=== PATIENT | female | born 1980 | race Caucasian/White ===

== ENCOUNTER 2017-07-07 19:32 | Emergency (ER) | payer OTHER, BC ==
[~2017-07-07] VITALS: Ht 170.2 cm; Wt 103.0 kg
[~2017-07-07 19:32] MED LIST: BONTRIL PDM35 MG PO; CYCLOBENZAPRINE10 MG PO; IBUPROFEN800 MG PO; MULTIVITAMINS1 EAC8 PO; NORCO 5-325 TA1 EACH PO; PERCOCET 5-3251 EACH PO; PYRIDIUM200 MG PO
--- OUTSIDE RECORDS SUMMARY | 2017-07-07 20:15 | XMS | Clinical Summary ---
Demographics + + + | Address | [address] | | | [place] [address] | + + + | Home Phone | | + + + | Preferred Language | Unknown | + + + | Marital Status | Unknown | + + + | Anabaptist Affiliation | Unknown | + + + | Race | Unknown | + + + | Ethnic Group | Unknown | + + + Author + + + | Author | [facility] | | | and [place] | + + + | Organization | [facility] | | | and [place] | + + + | Address | Unknown | + + + | Phone | Unavailable | + + + Care Team Providers + +------+ + | Care Digital Account Executive Name | Role | Phone | + +------+ + PP | Unavailable | + +------+ + Allergies Not on File Current Medications Not on file Active Problems Not on file Social History + +-------+ +--------+------+ | Tobacco Use | Types | Packs/Day | Years | Date | | | | | Used | | + +-------+ +--------+------+ | Never Assessed | | | | | + +-------+ +--------+------+ + + + | Sex Assigned at | Date Recorded | | | | + + + | Not on file | | + + + Plan of Treatment + + + + + | Health Maintenance | Due Date | Last Done | Comments | + + + + + | Vaccine: | 12/21/200 | | | | Dtap/Tdap/Td (1 - | 1 | | | | Tdap) | | | | + + + + + | CERVICAL CANCER | | | | | SCREENING (PAP EVERY | 3 | | | | 3 YEARS 21-64 ) | | | | + + + + + | Vaccine: Influenza | | | | | (Season Ended) | 8 | | | + + + + + Results Not on filefrom Last 3 Months"
--- OUTSIDE RECORDS SUMMARY | 2017-07-07 20:15 | XMS | Clinical Summary ---
Demographics + + + | Address | [address] | | | [place] [address] | + + + | Home Phone | | + + + | Preferred Language | Unknown | + + + | Marital Status | Unknown | + + + | Mandaen Affiliation | Unknown | + + + | Race | Unknown | + + + | Ethnic Group | Unknown | + + + Author + + + | Author | [facility] | | | and [place] | + + + | Organization | [facility] | | | and [place] | + + + | Address | Unknown | + + + | Phone | Unavailable | + + + Care Team Providers + +------+ + | Care Greenskeeper Laborer Name | Role | Phone | + [...]
[2017-07-07] MEDS ORDERED: IBU800 MG PO (20:23)
[2017-07-07] MEDS ORDERED: NORCO 5-325 TA1 EACH PO (22:45)
== END 2017-07-07 23:13 | disposition home or self-care (01) ==
LOC: ED 19:32
DX: R10.9 Unspecified abdominal pain (principal); N20.0 Calculus of kidney; F17.200 Nicotine dependence, unspecified, uncomplicated; Z88.1 Allergy status to other antibiotic agents
CPT/HCPCS: 74176; 80053; 81001; 85025; 96374; 96375; 96376; 99284; J1885; J2270; J2405

== ENCOUNTER 2017-07-13 09:43 | Emergency (ER) | payer OTHER, BC ==
[~2017-07-13] VITALS: Ht 170.2 cm; Wt 103.0 kg
[~2017-07-13 09:43] MED LIST changes: +IBU800 MG PO
[2017-07-13] MEDS ORDERED: MEDROL4 MG PO (11:49)
[2017-07-13] MEDS ORDERED: CYCLOBENZAPRINE5 MG PO (11:49)
[2017-07-13] MEDS ORDERED: NAPROSYN500 MG PO (11:49)
[2017-07-13] MEDS ORDERED: ZOFRAN ODT4 MG PO (11:49)
== END 2017-07-13 11:59 | disposition home or self-care (01) ==
LOC: ED 09:43
DX: R10.9 Unspecified abdominal pain (principal); F17.200 Nicotine dependence, unspecified, uncomplicated; Z88.0 Allergy status to penicillin; Z88.5 Allergy status to narcotic agent; Z79.899 Other long term (current) drug therapy
CPT/HCPCS: 76770; 80053; 81001; 85025; 96361; 96374; 96375; 99283; J1885; J2405; J2550; J7030

== ENCOUNTER 2017-09-28 21:55 | Emergency (ER) | payer BC ==
[~2017-09-28] VITALS: Ht 167.6 cm; Wt 104.3 kg
[~2017-09-28 21:55] MED LIST changes: +CYCLOBENZAPRINE5 MG PO; +MEDROL4 MG PO; +NAPROSYN500 MG PO; +ZOFRAN ODT4 MG PO
[2017-09-28] MEDS ORDERED: TRINATE TABLET1 EACH PO (22:06)
== END 2017-09-29 01:03 | disposition home or self-care (01) ==
LOC: ED 21:55
DX: G43.909 Migraine, unspecified, not intractable, without status migrainosus (principal); F17.200 Nicotine dependence, unspecified, uncomplicated; Z88.0 Allergy status to penicillin; Z88.5 Allergy status to narcotic agent
CPT/HCPCS: 70450; 96361; 96372; 96374; 96375; 99284; J1200; J1885; J2765; J3030; J7030

== ENCOUNTER 2021-12-04 11:39 | Emergency (ER) | payer OTHER ==
[~2021-12-04] VITALS: Ht 167.6 cm; Wt 119.0 kg
[~2021-12-04 11:39] MED LIST changes: +MOTRIN IB200 MG PO; +TRINATE TABLET1 EACH PO; +TYLENOL WITH C1 EACH PO; +ULTRAM50 MG PO
[2021-12-04] MEDS ORDERED: ONDANSETRON ODT4 MG PO (12:12)
[2021-12-04] MEDS ORDERED: PROTONIX40 MG PO (12:12)
[2021-12-04] MEDS ORDERED: HYDROCODON-ACE1 EA10 PO (12:12)
== END 2021-12-04 13:14 | disposition home or self-care (01) ==
LOC: ED 11:39
DX: K29.00 Acute gastritis without bleeding (principal); Z87.442 Personal history of urinary calculi; F17.200 Nicotine dependence, unspecified, uncomplicated; Z88.0 Allergy status to penicillin; Z88.5 Allergy status to narcotic agent; Z88.8 Allergy status to other drugs, medicaments and biological substances; Z79.899 Other long term (current) drug therapy
CPT/HCPCS: 87493; 99283

== ENCOUNTER 2021-12-24 11:41 | Day surgery (SDC) | payer OTHER ==
[~2021-12-24] VITALS: Ht 167.6 cm; Wt 118.2 kg
[~2021-12-24 11:41] MED LIST changes: +HYDROCODON-ACE1 EA10 PO; +ONDANSETRON ODT4 MG PO; +PROTONIX40 MG PO
[2021-12-24] MEDS ORDERED: SUMATRIPTAN SUC50 MG PO (12:03)
[2021-12-24] MEDS ORDERED: VITAMIN D21250 MCG PO (12:03)
--- NOTE | 2021-12-24 13:28 | NUR ---
12/24/21 1328 Elizabeth Mc 1322 PATIENT ARRIVES TO PACU AWAKE BUT DROWSY. DENIES PAIN OR NAUSEA. RESP EVEN AND UNLABORED, NC OFF.
--- NOTE | 2021-12-24 19:03 | OR ---
[facility] [address] [place], [place] [address] Signed DATE OF OPERATION: 12/24/2021 SURGEON: Levi Beavers MD PREOPERATIVE DIAGNOSES: 1. Poorly localized abdominal pain. 2. Diarrhea (persistent). 3. History of cholecystectomy. POSTOPERATIVE DIAGNOSES: 1. Hiatal hernia without associated esophagitis. 2. Proximal small esophageal nodule. 3. Small hiatal hernia. 4. Low-grade mild inflammatory change of the sigmoid and left colon. PROCEDURES: 1. Esophagogastroduodenoscopy with biopsy. 2. Excision of proximal esophageal nodular mass. 3. Total colonoscopy to cecum with biopsies of ileum, cecum, and rectum. 4. Excision of small polyp of left colon. ANESTHESIA: Intravenous sedation fentanyl 200 mcg Versed 11 mg, total. INDICATION: 41-year-old white woman is a patient of Yenikaleigh La, She has had diarrhea for the past two months. She does have history of cholecystectomy in the past (2010) and colonoscopy in 2018. She has upper abdominal pain symptoms, but no sign of hematemesis or blood per rectum. She has had diarrhea as noted with associated abdominal pain, but no rectal bleeding. She is admitted at this time to undergo upper endoscopy and colonoscopy to better characterize the problem. It is notable that she did present to the emergency room and was recommended to have treatment empirically for C difficile with Flagyl, which she declined. FINDINGS: Upper endoscopy showed small nodule in the proximal esophagus which was easily excised completely. It had epithelial changes in appearance. The esophagus itself was otherwise reasonably normal. There was a hiatal hernia. She had mild irritation of the duodenum, no sign of ulceration. CLOtest was negative. Electronically Signed By: LEVI BEAVERS MD 12/24/21 190 PATIENT NAME: ROMAN SLAUGHTER OPERATIVE REPORT DATE OF : 84 REPORT #: [id number] PHYSICIAN: LEVI BEAVERS MD PCP: YENI LA PA-C REPORT IS CONFIDENTIAL AND NOT TO BE RELEASED WITHOUT AUTHORIZATION [facility] [address] [place], [place] [address] Signed On colonoscopy, the prep was good. Complete colonoscopy was undertaken of cecum. Intubation of the ileum was accomplished. The ileum appeared normal. Biopsies were obtained there and of the cecum and rectum. She had a small polyp of the sigmoid colon which was excised with cold morcellation technique. There were no other findings of concern. PROCEDURE IN DETAIL: The patient was brought to the endoscopy suite given topical lidocaine hypopharyngeal anesthesia, placed in lateral decubitus position. She was given intravenous sedation to the point of slurred speech and nystagmus. A bite block was placed. An Olympus video upper endoscope was passed in the hypopharynx. Vocal cords were found to be normal. Scope was advanced to the esophagus and passed through the GE junction to the stomach. Stomach was inflated with air. Rugal folds appeared normal. Antrum was normal. Pylorus was normal. Scope was passed through into the duodenum. There was mild inflammatory change of the bulbar portion, but no ulceration. Biopsies were taken of the bulb and the second portion. The ampulla was identified as normal. Scope was withdrawn. Biopsies taken of the antrum for both OMAYRA and pathologic testing. Retroflexed view undertaken showed a small hiatal hernia. The scope was withdrawn to the distal esophagus. Biopsies were obtained though the mucosa looked reasonably normal. There was no Huerta's epithelium stricture or neoplasm. Further withdrawal of scope showed a somewhat epithelioid nodule at 20 cm from the incisors. This was excised with cold morcellation technique. The scope was withdrawn. Plans were then made for colonoscopy. Additional sedation was given. Anorectal examination showed external hemorrhoidal change. An Olympus video colonoscope was passed in the rectum and manipulated throughout the colon ultimately to the cecum. The ileocecal valve appeared normal. Appendiceal orifice was normal. Scope was advanced into the ileum a short distance and biopsy was obtained of normal-appearing mucosa. The scope was withdrawn. Biopsies taken of the cecum. Further withdrawal showed no other abnormality until the sigmoid where a small sessile polyp was noted, this was excised with cold morcellation technique. Further withdrawal showed mild inflammatory change of the rectum, but not much. Biopsies were obtained. Retroflexed view was essentially normal. Scope was removed. The patient was taken to the recovery room in good condition. CONCLUDING DIAGNOSES: 1. Hiatal hernia with uncertain relationship for reflux type symptoms. 2. Small proximal esophageal nodule excised, likely benign. 3. Reasonably normal-appearing colon and ilium. PLAN: Empiric treatment of Flagyl 250 p.o. t.i.d. x42 pills will be undertaken. If she still has symptoms of diarrhea, consideration will be made for Questran administration given Electronically Signed By: LEVI BEAVERS MD 12/24/21 501 PATIENT NAME: ROMAN SLAUGHTER OPERATIVE REPORT DATE OF : 84 REPORT #: [id number] PHYSICIAN: LEVI BEAVERS MD PCP: YENI LA PA-C REPORT IS CONFIDENTIAL AND NOT TO BE RELEASED WITHOUT AUTHORIZATION [address] [address] Signed her distant history of cholecystectomy. She will return to see me in approximately 4 weeks. MD ROSALINA Pandya/MODL /[id number] cc: Yeni La PA-C Copies: YENI LA PA-C ~ Electronically Signed By: LEVI BEAVERS MD 12/24/211902 PATIENT NAME: ROMAN SLAUGHTER OPERATIVE REPORT DATE OF : 84 REPORT #: [id number] PHYSICIAN: LEVI BEAVERS MD PCP: YENI LA PA-C REPORT IS CONFIDENTIAL AND NOT TO BE RELEASED WITHOUT AUTHORIZATION
--- NOTE | 2021-12-30 14:51 | PATH ---
[facility] [address] [facility] [place], [place] [address] Signed SPECIMEN(S): A DUODENAL BIOPSY SPECIMEN(S): B ANTRUM/PYLORUS BIOPSY SPECIMEN(S): C LOW ESOPHAGEAL BIOPSY SPECIMEN(S): D MID ESOPHAGEAL BIOPSY SPECIMEN(S): E ESOPHAGEAL BIOPSY AT 20 CM SPECIMEN(S): F TERMINAL ILEUM BIOPSY SPECIMEN(S): G CECAL BIOPSY SPECIMEN(S): H TRANSVERSE COLON BIOPSY SPECIMEN(S): I SIGMOID COLON BIOPSY SPECIMEN(S): J SIGMOID POLYP SPECIMEN(S): K RECTAL BIOPSY SPECIMEN SOURCE: A. DUODENAL BIOPSY B. ANTRUM/PYLORUS BIOPSY C. LOW ESOPHAGEAL BIOPSY D. MID ESOPHAGEAL BIOPSY E. ESOPHAGEAL BIOPSY AT 20 CM F. TERMINAL ILEUM BIOPSY G. CECAL BIOPSY H. TRANSVERSE COLON BIOPSY I. SIGMOID COLON BIOPSY J. SIGMOID POLYP K. RECTAL BIOPSY CLINICAL HISTORY: History of diarrhea (chronic), abdominal pain. Post: Hiatal hernia, small esophageal nodule, mild inflammation of colon, polyp x1. FINAL PATHOLOGIC DIAGNOSIS: A. Duodenum, biopsy: - No significant histopathology. B. Antrum/pylorus, biopsy: - No significant histopathologic alterations. C. Low esophagus, biopsy: - Reflux esophagitis. - No evidence of Huerta's esophagus. D. Mid esophagus, biopsy: - Chronic esophagitis. E. Esophagus, 20 cm, biopsy: - Squamous papilloma. PATIENT NAME: KASANDRAROMANANN MARIE SMITH PATHOLOGY DATE OF : 84 REPORT #: [id number] PHYSICIAN: ANA MARIA WILLSON PCP: SANTY LOMBARDI PA-C REPORT IS CONFIDENTIAL AND NOT TO BE RELEASED WITHOUT AUTHORIZATION [facility] [address] [place], [place] [address] Signed F. Terminal ileum, biopsy: - Focal acute ileitis. G. Colon, cecum, biopsy: - Mucosal eosinophilia. H. Colon, transverse, biopsy: - No significant histopathology. I. Colon, sigmoid, biopsy: - No significant histopathology. J. Colon, sigmoid, polypectomy: - Hyperplastic polyp. - There is no evidence of dysplasia or malignancy. K. Rectum, biopsy: - No significant histopathologic alterations. COMMENT: Regarding specimen A, the sections from the duodenal biopsy show portions of duodenal mucosa with long finger-like villi. There is no villous atrophy, crypt hyperplasia or intraepithelial lymphocytosis, making a diagnosis of celiac disease unlikely. There is no evidence of peptic duodenitis, microorganisms, abnormal infiltrates or neoplasia. Regarding specimen B, the sections through the gastric biopsies show fragments of histologically unremarkable antral mucosa. There is no evidence of acute or chronic inflammation. There is no evidence of H. pylori, intestinal metaplasia, abnormal infiltrates or neoplasia. Regarding specimen C, the sections through the biopsy show strips of reactive appearing squamous mucosa with basal cell hyperplasia. The epithelium is infiltrated by lymphocytes and small numbers of eosinophils. No glandular mucosa or intestinal metaplasia is identified. Regarding specimen D, the biopsy contains reactive appearing squamous mucosa with mild ballooning degeneration. Prominent vascular lakes are present in the papillae. No gastric glandular mucosa is identified. The changes are nonspecific and can be seen in a variety of settings including infections, gastroesophageal reflux disease or other forms of esophagitis. Regarding specimen E, features of HPV-induced nuclear changes are not present in these sections. Regarding specimen F, the sections from the terminal ileum show an architecturally normal mucosa. Focally, there is an increase in the number of mononuclear cells in the lamina propria. There is a PATIENT NAME: ROMAN SLAUGHTER PATHOLOGY DATE OF : 84 REPORT #: [id number] PHYSICIAN: ANA MARIA PATHOLOGY PCP: SANTY LOMBARDI PA-C REPORT IS CONFIDENTIAL AND NOT TO BE RELEASED WITHOUT AUTHORIZATION [facility] [address] [place], [place] [address] Signed focal neutrophilic infiltrate involving the villi. Changes such as this can be seen in patients with IBD, infections, ischemia or on certain medications. No granulomas or abnormal organisms are seen. Regarding specimen G, sections through the specimen show a focal increase in the number of eosinophils in the lamina propria. Where they are most numerous, they number up to 41/HPF. Increased eosinophils are seen in response to some infections, in patients with IBD and in patients with allergies or reactions to drugs, foods, supplements and environmental allergens. This change could be the result of stasis that commonly occurs in motility disorders. A certain percentage of patients with this finding will eventually be shown to develop Crohn's disease. Regarding specimens H and I, the sections from the specimens contain architecturally normal colonic mucosa without crypt distortion. There is no acute or chronic inflammation. There is no evidence of microscopic colitis. There are no abnormal organisms or infiltrates. There are no polyps or neoplasms. Regarding specimen K, the sections from the specimen are architecturally normal without crypt distortion. There is no acute or chronic inflammation. There is no evidence of microscopic colitis. There are no abnormal organisms or infiltrates. There is no evidence of polyps or neoplasia. TWK:em:C2NR MICROSCOPIC EXAMINATION: Histologic sections of all submitted blocks are examined by light microscopy. These findings, together with the gross examination, support the pathologic diagnosis. GROSS DESCRIPTION: Eleven specimens are received in eleven containers, labeled "HV ." A. The specimen, labeled "HV #1," is received in formalin and consists of one march soft tissue fragment that measures 0.3 cm in greatest dimension. The specimen is entirely submitted in cassette (A1). B. The specimen, labeled "HV #2," is received in formalin and consists of two march soft tissue fragment(s) that measure 0.2 cm in greatest dimension. The specimen is entirely submitted in cassette (B1). C. The specimen, labeled "HV #3," is received in formalin and consists of two march soft tissue fragment(s) that measure 0.3 cm in greatest dimension. The PATIENT NAME: ROMAN SLAUGHTER PATHOLOGY DATE OF : 84 REPORT #: [id number] PHYSICIAN: ANA MARIA PATHOLOGY PCP: SANTY LOMBARDI PA-C REPORT IS CONFIDENTIAL AND NOT TO BE RELEASED WITHOUT AUTHORIZATION [address] [address] Signed specimen is entirely submitted in cassette (C1). D. The specimen, labeled "HV #4," is received in formalin and consists of one march soft tissue fragment that measures 0.3 cm in greatest dimension. The specimen is entirely submitted in cassette (D1). E. The specimen, labeled "HV #5," is received in formalin and consists of one march soft tissue fragment that measures 0.2 cm in greatest dimension. The specimen is entirely submitted in cassette (E1). F. The specimen, labeled "HV #6," is received in formalin and consists of two march soft tissue fragment(s) that measure 0.3 cm in greatest dimension. The specimen is entirely submitted in cassette (F1). G. The specimen, labeled "HV #7," is received in formalin and consists of one march soft tissue fragment that measures 0.3 cm in greatest dimension. The specimen is entirely submitted in cassette (G1). H. The specimen, labeled "HV #8," is received in formalin and consists of two march soft tissue fragment(s) that measure 0.2 cm in greatest dimension. The specimen is entirely submitted in cassette (H1). I. The specimen, labeled "HV #9," is received in formalin and consists of three march soft tissue fragment(s) that measure 0.2 cm in greatest dimension. The specimen is entirely submitted in cassette (I1). J. The specimen, labeled "HV #10," is received in formalin and consists of two march soft tissue fragment(s) that measure 0.2 cm in greatest dimension. The specimen is entirely submitted in cassette (J1). K. The specimen, labeled "HV #11," is received in formalin and consists of two march soft tissue fragment(s) that measure 0.2 cm in greatest dimension. The specimen is entirely submitted in cassette (K1). KV (under the direct supervision of a pathologist) The Gross Description was prepared using a voice recognition system. The report was reviewed for accuracy; however, sound-alike word errors, addition and/or deletions may occur. If there is any question about this report, please contact Client Services. PERFORMING LABORATORY: The technical component was performed by [email or web address], Rema Pena, PATIENT NAME: ROMAN SLAUGHTER PATHOLOGY DATE OF : 84 REPORT #: [id number] PHYSICIAN: ANA MARIA PATHOLOGY PCP: SANTY LOMBARDI PA-C REPORT IS CONFIDENTIAL AND NOT TO BE RELEASED WITHOUT AUTHORIZATION [address], [place] [address] [place] [address] (CLIA# [id number]). The professional interpretation was performed by [facility], [facility], [facility] [address] [address] (CLIA#: [id number]). Diagnostician: Laron Briseno MD Pathologist Electronically Signed 12/30/2021 Copies: ~ PATIENT NAME: ROMAN SLAUGHTER PATHOLOGY DATE OF : 84 REPORT #: [id number] PHYSICIAN: ANA MARIA WILLSON PCP: SANTY LOMBARDI PA-C REPORT IS CONFIDENTIAL AND NOT TO BE RELEASED WITHOUT AUTHORIZATION
== END 2021-12-24 14:05 | disposition home or self-care (01) ==
LOC: OPS 11:41 → DS 11:44 → OPS 11:45 → DS 13:00 → OPS 13:00
PROVIDERS: ATTEND Surgery
PROC: 0DBH8ZX Excision of Cecum, Via Natural or Artificial Opening Endoscopic, Diagnostic (ICD-10-PCS; 2021-12-24)
PROC: 0DBL8ZX Excision of Transverse Colon, Via Natural or Artificial Opening Endoscopic, Diagnostic (ICD-10-PCS; 2021-12-24)
PROC: 0DBN8ZX Excision of Sigmoid Colon, Via Natural or Artificial Opening Endoscopic, Diagnostic (ICD-10-PCS; 2021-12-24)
PROC: 0DBP8ZX Excision of Rectum, Via Natural or Artificial Opening Endoscopic, Diagnostic (ICD-10-PCS; 2021-12-24)
PROC: 0DBB8ZX Excision of Ileum, Via Natural or Artificial Opening Endoscopic, Diagnostic (ICD-10-PCS; 2021-12-24)
PROC: 0DB98ZX Excision of Duodenum, Via Natural or Artificial Opening Endoscopic, Diagnostic (ICD-10-PCS; principal; 2021-12-24 11:45)
PROC: 0DB68ZX Excision of Stomach, Via Natural or Artificial Opening Endoscopic, Diagnostic (ICD-10-PCS; 2021-12-24 11:45)
DX: K52.9 Noninfective gastroenteritis and colitis, unspecified (principal); Z90.49 Acquired absence of other specified parts of digestive tract; Z90.710 Acquired absence of both cervix and uterus; K44.9 Diaphragmatic hernia without obstruction or gangrene; K63.89 Other specified diseases of intestine; K21.00 Gastro-esophageal reflux disease with esophagitis, without bleeding; K63.5 Polyp of colon; D13.0 Benign neoplasm of esophagus
CPT/HCPCS: 99153; G0500; J2250; J3010; J7121

== ENCOUNTER 2023-04-07 06:58 | Day surgery (SDC) | payer BC, OTHER ==
[2023-04-02 15:19] VITALS: BP 110/83
[~2023-04-07] VITALS: Ht 167.6 cm; Wt 113.6 kg
[2023-04-07] VITALS (9 sets, daily range): BP systolic 98–126; BP diastolic 59–85
--- NOTE | ~2023-04-07 | OR ---
[facility] [address], [place] [address] Draft DATE OF OPERATION: 04/07/2023 SURGEON: Cheryl Wilson DO PREOPERATIVE DIAGNOSES: 1. Chronic pelvic pain. 2. History of endometriosis. 3. Hydrosalpinx. POSTOPERATIVE DIAGNOSES: 1. Chronic pelvic pain. 2. History of endometriosis. 3. Hydrosalpinx. 4. Extensive pelvic adhesions. 5. Endometriosis of the pelvic peritoneum excised in total. PROCEDURES PERFORMED: 1. Left oophorectomy. 2. Right salpingectomy. 3. Extensive lysis of adhesions. 4. Excision of endometriosis. 5. Cystoscopy. MORTAR MIXER: Carmella Lyles MD ANESTHESIA: General. ESTIMATED BLOOD LOSS: 50 mL. COMPLICATIONS: None. SPECIMENS: 1. Left ovary. 2. Right hydrosalpinx. 3. Endometriosis implants. PATIENT NAME: ROMAN SLAUGHTER OPERATIVE REPORT DATE OF : 84 REPORT #: [id number] PHYSICIAN: CHERYL WILSON) PCP: SANTY LOMBARDI PA-C REPORT IS CONFIDENTIAL AND NOT TO BE RELEASED WITHOUT AUTHORIZATION [facility] [address] [place] [id number] Draft DRAINS: None. IMPLANTS: None. INDICATIONS: Ms. Slaughter is a very pleasant 43-year-old G1 female with a long history of endometriosis and chronic pelvic pain. She underwent hysterectomy 13 years ago for endometriosis and had excision of residual endometriosis in 2019. Over the past six months, the patient reported increased symptoms. An ultrasound was performed that demonstrated normal ovaries bilaterally, but a large fallopian tube consistent with hydrosalpinx. The patient was consented for diagnostic laparoscopy with bilateral salpingectomy and excision of endometriosis and any other procedures as necessary. Risks, benefits, and alternatives were discussed in detail with the patient. The patient understands and wishes to proceed with the procedure. TECHNIQUE: The patient was taken to the OR. A time-out was performed to confirm correct patient and correct procedure. General anesthesia was adequately established. The patient was prepped and draped in dorsal lithotomy position with the feet in Yellofin stirrups. ICPs were on and running and no preoperative antibiotics or heparin was indicated. A Blake catheter was inserted and an EEA bowel sizer appropriately-sized was placed in vagina to assist with manipulation of the vaginal cuff needed. Surgeon's gloves were changed and attention was turned to the abdomen. Below the umbilicus, the skin was infiltrated with 0.25% Marcaine with epinephrine. A curvilinear incision was made with an 11 blade scalpel. The fascia was grasped with hemostats, elevated, and the fascia was entered sharply with Metzenbaum scissors. Stay sutures of 0 Vicryl placed were in the superior and inferior edge of the fascial incision. The peritoneum was entered bluntly and a Aden operative port was placed without difficulty. Establishing pneumoperitoneum with low opening pressures appreciated. Survey of the abdomen and pelvis was performed demonstrating significant adhesive disease. A 5 mm assist port was placed in the left lower quadrant under direct visualization and an 8 mm expanding port was placed in the right lower quadrant under direct visualization without complication. The right adnexum shows normal right ovary with right hydrosalpinx that was scarred to the vaginal cuff. The uterus and left fallopian tube are surgically absent. The left ovary is adherent and deeply scarred to the pelvic sidewall and to the sigmoid colon. The pelvic peritoneum next to these adhesions appears to be consistent with endometriosis. Decision was made to proceed with right salpingectomy of hydrosalpinx and left oophorectomy and lysis of adhesions. The right hydrosalpinx was grasped, elevated, and dissected carefully using the LigaSure device from the vaginal cuff. This dissection was uncomplicated and the hydrosalpinx was delivered and sent to Pathology PATIENT NAME: ROMAN SLAUGHTER OPERATIVE REPORT DATE OF : [birth year] REPORT #: [id number] PHYSICIAN: CHERYL WILSON (TIANA) PCP: SANTY LOMBARDI PA-C REPORT IS CONFIDENTIAL AND NOT TO BE RELEASED WITHOUT AUTHORIZATION [facility] [address], [place] [address] Draft for further evaluation. The appendix was noted to be surgically absent and no gross endometrial implants were noted in the right lower quadrant. Attention was then turned to the left. The ovary was densely adherent. The left infundibulopelvic ligament was identified and decision was made to open the retroperitoneum. The peritoneum lateral and superior to the IP was grasped and entered sharply and the peritoneum dissected bluntly. The infundibulopelvic ligament was identified. The ureter was identified medial to this. The IP was then isolated, fulgurated and divided with excellent hemostasis. Careful dissection of the ovary away from the remainder of the pelvic sidewall and the rectum was performed with careful extraction of the ovary. The bowel was carefully examined and no concern for bowel injury was identified. An endometrial implant of the pelvic peritoneum on the left just lateral to the round ligament was then identified. This was grasped, elevated, and the peritoneum was entered sharply. The peritoneum was then undermined bluntly, freeing the peritoneal implant from the underlying retroperitoneal tissue. This was then excised in total and sent to Pathology for further evaluation. The pelvis was irrigated and found to be hemostatic. Tisseel was applied to the dissection planes to assure hemostasis possibly avoid adhesions in the future. The pneumoperitoneum was reduced. Trocars were removed and infraumbilical fascia was reapproximated using 0 Vicryl in a running nonlocked manner. Stay sutures were reapproximated using to reinforce the infraumbilical fascial incision. The skin was reapproximated using 4-0 Monocryl in a running subcuticular stitch with excellent hemostasis and then the cosmesis appreciated. Attention was then turned to cystoscopy. The EEA Sizer was removed. The vagina and the Blake catheter was removed from the bladder. A 7-degree cystoscope was then placed in the urethral meatus and advanced under direct visualization to the bladder. Normal bladder dome and bilateral ureteral jets were performed. The bladder was drained. Blake catheter was reinserted. The patient was taken to PACU in good and stable condition. Sponge, needle, and instrument counts were correct x2 at the end the procedure. Dr. Lyles was present and participated in all portions of the procedure. DO RAHEL Maravilla/OZZY /[id number] PATIENT NAME: ROMAN SLAUGHTER OPERATIVE REPORT DATE OF : [birth year] REPORT #: [id number] PHYSICIAN: CHERYL WILSON) PCP: SANTY LOMBARDI PA-C REPORT IS CONFIDENTIAL AND NOT TO BE RELEASED WITHOUT AUTHORIZATION [address] [place], [place] [address] Draft Copies: ~ PATIENT NAME: ROMAN SLAUGHTER OPERATIVE REPORT DATE OF : 84 REPORT #: [id number] PHYSICIAN: CHERYL WILSON) PCP: SANTY LOMBARDI PA-C REPORT IS CONFIDENTIAL AND NOT TO BE RELEASED WITHOUT AUTHORIZATION
[~2023-04-07 06:58] MED LIST changes: +FLONASE ALLERG9.9 ML; +SUMATRIPTAN SUC50 MG PO; +VITAMIN D21250 MCG PO; +WELLBUTRIN XL150 MG PO; +XYZAL5 MG PO
--- NOTE | 2023-04-07 11:58 | NUR ---
0955 PT VITALS AND PAIN ASSESSED. PT REPORTS TOLERABLE LEVEL OF PAIN. PT INFORMED THAT PROCEDURE HAS BEEN BUMPED. PT UNDERSTANDING OF SITUATION. 1046 PT VITALS TAKEN. PT REPORTS HIGHER LEVEL OF PAIN AND REQUESTS PAIN MEDICINE. THIS RN SPOKE WT VICKY ANESTHIA IN REGARDS TO THIS. ANESTHIA BROUGHT IV TYLEOL AND ADMNISTERED TO PT. 1142 PT VITALS TAKEN. PAIN REASSSESSED AND IS AT A TOLERABLE LEVEL. PT INFORMED OF WAIT FOR PROCEDURE. PT STILL UNDERSTANDING OF SITUATION.
--- NOTE | 2023-04-07 12:13 | NUR ---
LE 1210 PATIENT UP TO THE RESTROOM. TOLERATED AMBULATION WELL. NEW BAG OF LR STARTED. PATIENT BACK TO BED. PATIENT UPDATED ON WAIT. PATIENT AGREEABLE AND UNDERSTANDING AT THIS TIME. CALL LIGHT WITHIN REACH NO FUTHER NEEDS. NO QUESTIONS AT THIS TIME. AT BEDSIDE.
--- NOTE | 2023-04-07 15:51 | NUR ---
04/07/23 1557 Lexi Kirby 1525- PT ARRIVES TO PACU VIA STRETCHER FROM OR. PT IS NOT REACTIVE TO TACTILE STIMULI AT THIS TIME. PT BED AT [address] AND DRAINING TO GRAVITY. MESH UNDERWEAR AND MULU PAD IN PLACE AT THIS TIME, NO DRAINAGE. PT RESPIRATIONS ARE SHALLOW AND UNLABORED, NO SIGNS OF DISTRESS. PT ON 6L OF O2 VIA MASK W/OPA IN PLACE. REPORT RECEIVED FROM ELIAS SOUSA.
--- NOTE | 2023-04-07 16:49 | NUR ---
164 PT CAME TO DAY SURGERY VIA BRIDGETT FROM PACU. TOOK REPORT FROM МАРИЯ Mcneill RN. PT HAS 5/10 PAIN. PT REPORTS NO NAUSEA. PT BREATHING EQUAL AND UNLABORED. PT BROUGHT OVER ON 1 L OF OXYGEN. PT TOLERATING PO WATER. 1647 PT TAKEN OFF OXYGEN. PT HOLDING AT 98% OXYGEN SATURATION. PULSE OX LEFT ON PT TO MONITOR.
--- NOTE | 2023-04-07 17:09 | NUR ---
1700 PT REPORTS 5/10 NOT TOLERABLE PAIN. PT ABLE TO TOLERATE CRACKERS AND PUDDING AND WATER. 1708 PAIN MEDICINE GIVEN ORALLY. PT TOLERATING WELL. 1710 PT ON ROOM AIR AND STAYING AT 99% OXYGEN SATURATION. PT BREATHING EQUAL AND UNLABORED. PT HAS AT BEDSIDE, PT HAS CALL LIGHT WITHIN REACH, PT HAS PERSONAL ITEMS WITHIN REACH. BED LOW AND LOCKED.
--- NOTE | 2023-04-07 18:10 | NUR ---
1750 PT ABLE TO TOLERATE PT FOOD AND WATER. PT UNABLE TO VOID. PT AT TOLERABLE LEVEL OF 4/[address] HERNANDEZ AND PT BEING SENT TO ROOM 124 ON MEDSURGE. HUNG BAG OF LR PER DR HERNANDEZ. 1800 [facility], REPORT GIVEN TO PERLA Howard RN. PT HAS AT SIDE, AND ALL PERSONAL BELONGINGS WITH HER. PT AND FAMILY HAVE NO FURTHER QUESTIONS AT THIS TIME. PT HAS CALL LIGHT WITHIN REACH, PT HAS PERSONAL ITEMS WITHIN REACH. PT BED LOW AND LOCKED.
--- NOTE | 2023-04-07 18:19 | NUR ---
PATIENT ARRIVED TO THE FLOOR VIA STRETCHER AT 1800. REPORT RECEIED FROM DAY SURGERY RN ALLIE. PATIENT VITAL SIGNS COMPLETE. PATIENT IS AT THE BEDSIDE. PATIENT REQUESTING AN ICE PACK. PATIENT STATED NO FURTHER NEEDS AT THIS TIME. CALL LIGHT AND PERSONAL BELONGINGS ARE WITHIN REACH.
[2023-04-07] MEDS ORDERED: HYDROCODON-ACE1 EA10 PO (18:29)
[2023-04-07] MEDS ORDERED: IBUPROFEN800 MG PO (18:30)
--- NOTE | 2023-04-07 18:56 | NUR ---
PATIENT SITTING UPRIGHT IN THE STRETCHER. PATIENT GIVEN SOME SNACKS AND SMALL SODA. PATIENT STATED NO PAIN AT THIS TIME. PATIENT GIVEN A WARM BLANKET. PATIENT STATED NO FURTHER NEEDS AT THIS TIME. CALL LIGHT AND PERSONAL BELONGINGS ARE WITHIN REACH.
--- NOTE | 2023-04-07 19:26 | NUR ---
REPORT RECEIVED FROM DAY SHIFT RN. PATIENT VOIDED 100 mL OF URINE. PATIENT IV DC'd. IN ROOM AT BEDSIDE.
--- NOTE | 2023-04-07 19:39 | NUR ---
VS OBTAINED AND RECORED. DERRICK FAUSTIN TRANSPORTING PATIENT TO CAR VIA WHEELCHAIR. PATIENT DC TO HOME WITH . DRIVING. PATIENT WITH BELONGINGS IN HAND.
--- NOTE | 2023-04-09 12:28 | PATH ---
[facility] [address] [place], [place] [address] Signed SPECIMEN(S): A RIGHT TUBE AND LEFT OVARY SPECIMEN(S): B PELVIC PERITONEUM SPECIMEN SOURCE: A. RIGHT TUBE AND LEFT OVARY B. PELVIC PERITONEUM CLINICAL HISTORY: Pelvic pain; endometriosis; hydrosalpinx FINAL PATHOLOGIC DIAGNOSIS: A. Fallopian tube and ovary, right, salpingo-oophorectomy: - Dilated fallopian tube, clinically hydrosalpinx - Ovary with no significant pathologic changes B. Peritoneum, pelvic, biopsy: - Peritoneal tissue with no significant pathologic changes BRP MICROSCOPIC EXAMINATION: Histologic sections of all submitted blocks are examined by light microscopy. These findings, together with the gross examination, support the pathologic diagnosis. GROSS DESCRIPTION: A. The specimen, labeled and designated "Harer, right tube and left ovary," is received in formalin and consists of pink-march, focally congested fibrous tissue fragment that measure 2.5 x 2.5 x 1.7 cm with a attached yellow-march to pink-march fibroadipose tissue that measures 5.0 x 1.1 x 0.4 cm. No definitive fallopian tube tissue is identified. Sectioning through fibrous tissue reveal yellow-march homogenous tissue. Sectioning through the attached fibroadipose tissue is grossly unremarkable. Also present within the container are several pieces of pink-march fibromembranous tissue that aggregate measure 2.5 x 2.5 x 0.7 cm. Sectioning through fibromembranous tissue reveals pink-march to yellow-march surface that is consistent to ovarian tissue. Cassette Summary: (A1) fibrous tissue, technical support representative section (A2) attached fibroadipose tissue, technical support representative section (A3) fibromembranous tissue, consistent to ovarian tissue, technical support representative section PATIENT NAME: ROMAN SLAUGHTER PATHOLOGY DATE OF : 84 REPORT #: [id number] PHYSICIAN: ANA MARIA PATHOLOGY PCP: SANTY LOMBARDI PA-C REPORT IS CONFIDENTIAL AND NOT TO BE RELEASED WITHOUT AUTHORIZATION [facility] [address] [place], [place] [address] Signed B. The specimen, labeled and designated "João, pelvic peritoneum," is received in formalin and consists of pink-march, focally congested, irregular shaped fibromembranous tissue fragment that measures 0.8 x 0.5 x 0.5 cm. Specimen is bisected and entirely submitted in (B1). JS (under the direct supervision of a pathologist) The Gross Description was prepared using a voice recognition system. The report was reviewed for accuracy; however, sound-alike word errors, addition and/or deletions may occur. If there is any question about this report, please contact Client Services. ADDITIONAL NOTES: Immunohistochemical and/or in situ hybridization studies if performed in this case included appropriate positive controls that reacted as expected. This test was developed and its performance characteristics determined by [facility]. It has not been cleared or approved by the U.S. Food and Drug Administration. The FDA has determined that such clearance or approval is not necessary. This test is used for clinical purposes. It should not be regarded as investigational or for research. [facility] is certified under the Clinical Laboratory Improvement Amendments of 1988 (CLIA) as qualified to perform high complexity clinical laboratory testing. PERFORMING LABORATORY: Technical component was performed by [facility], [address] [place] [id number] (CLIA# [id number]). Professional interpretation was performed by [facility], [address] [place] [address] (CLIA#:[id number]). Diagnostician: Isai Moon MD Pathologist Electronically Signed 04/09/2023 Copies: ~ PATIENT NAME: ROMAN SLAUGHTER SARAH PATHOLOGY DATE OF : 84 REPORT #: [id number] PHYSICIAN: AN AMARIA PATHOLOGY PCP: SANTY LOMBARDI PA-C REPORT IS CONFIDENTIAL AND NOT TO BE RELEASED WITHOUT AUTHORIZATION
== END 2023-04-07 19:43 | disposition home or self-care (01) ==
LOC: DS 06:58 → MS 18:08 → DS 19:43
PROVIDERS: ATTEND Obstetrics & Gynecology
PROC: 0UT54ZZ Resection of Right Fallopian Tube, Percutaneous Endoscopic Approach (ICD-10-PCS; principal; 2023-04-07 09:00)
PROC: 0UT14ZZ Resection of Left Ovary, Percutaneous Endoscopic Approach (ICD-10-PCS; 2023-04-07 09:00)
PROC: 0DBW4ZZ Excision of Peritoneum, Percutaneous Endoscopic Approach (ICD-10-PCS; 2023-04-07 09:00)
DX: N70.11 Chronic salpingitis (principal); N80.9 Endometriosis, unspecified; N73.6 Female pelvic peritoneal adhesions (postinfective); Z90.710 Acquired absence of both cervix and uterus; Z88.0 Allergy status to penicillin; Z79.899 Other long term (current) drug therapy
CPT/HCPCS: 00840; J0131; J1100; J1644; J1885; J2001; J2405; J2704; J3010; J3475; J3490; J7121

== ENCOUNTER 2024-05-26 00:08 | Emergency (ER) | payer BC, OTHER ==
[~2024-05-26] VITALS: Ht 167.6 cm; Wt 105.0 kg
[~2024-05-26 00:08] MED LIST changes: +CEPHALEXIN500 M1 PO; +MECLIZINE HCL25 MG PO; +PERMETHRIN60 GM TOP; +PHENTERMINE HCL15 MG PO; +TOPIRAMATE25 MG PO
[2024-05-26] MEDS ORDERED: ACYCLOVIR400 MG PO (00:18)
[2024-05-26 00:29] LABS: BASOPHILS 0.8 % (0-2); EOSINOPHILS 1.7 % (0-6); HEMATOCRIT 36.6 % (35.0-50.0); HEMOGLOBIN 12.5 g/dL (12.0-18.0); LYMPHOCYTES 24.2 % (24-44); MCHC 34.2 g/dl (30-36); MONOCYTES 6.1 % (0-12); NEUTROPHILS 67.2 % (39-80); PLATELET COUNT 302 K/uL (140-440); RBC 4.46 M/ul (4.3-5.7); RDW 14.6 (10.5-15.0)
[2024-05-26] MEDS ORDERED: SODIUM CHLORIDE 0.9% 1,000 ML IV ONE (00:30)
[2024-05-26] MEDS ORDERED: KETOROLAC TROMETHAMINE 15 MG/ML VIAL IV ONE (00:30)
[2024-05-26] MEDS ORDERED: HYDROmorphone HCL 1 MG/ML SYR IV ONE ×2 (00:30→02:30)
[2024-05-26] MEDS ORDERED: ondansetron HCL 4 MG/2 ML VIAL IV ONE ×2 (00:30→02:45)
[2024-05-26 00:42] LABS: BILIRUBIN, URINE NEGATIVE (negative); BLOOD/HGB, URINE LARGE (Negative); KETONE, URINE NEGATIVE (Negative); LEUK ESTERASE, URINE NEGATIVE (negative); NITRITE, URINE NEGATIVE (negative)
[2024-05-26 00:43] LABS: ALBUMIN 3.5 g/dL (3.4-5.0); ALBUMIN/GLOBULIN RATIO 0.88 (1.1-2.4); ANION GAP 13.6 (7-21); BILIRUBIN, TOTAL 0.3 mg/dL (0.2-1.0); BUN/CREATININE RATIO 13.4 (6.0-28.6); CALCIUM 9.2 mg/dL (8.5-10.1); CREATININE, SERUM 0.97 mg/dL (0.55-1.02); POTASSIUM 3.6 mmol/L (3.5-5.1); PROTEIN, TOTAL 7.5 g/dL (6.4-8.2)
[2024-05-26 00:53] LABS: CRYSTALS, URINE NONE SEEN (0-1+); EPITHELIAL CELLS, URINE SQUAMOUS 3+ /lpf (0-1+); RED BLOOD CELLS, URINE >50 /hpf (0-5); WHITE BLOOD CELLS, URINE 0-1 /HPF (0-5)
[2024-05-26 00:54] LABS: BACTERIA, URINE RARE /hpf (negative); CASTS, URINE NONE SEEN \\lpf; COLLECTION TYPE, URINE CLEAN CATCH; REFLEX CULTURE, URINE No (No)
[2024-05-26] MEDS ORDERED: PERCOCET 5-3251 EACH PO (02:28)
[2024-05-26] MEDS ORDERED: FLOMAX0.4 MG PO (02:28)
[2024-05-26] MEDS ORDERED: KETOROLAC TROME10 MG PO (02:28)
[2024-05-26] MEDS ORDERED: CIPRO500 MG PO (02:28)
[2024-05-26] MEDS ORDERED: ONDANSETRON ODT8 MG PO (02:28)
[2024-05-26] MEDS ORDERED: CIPROFLOXACIN 500 MG TAB PO ONE (02:30)
[2024-05-26] MEDS ORDERED: TAMSULOSIN HCL 0.4 MG CAP PO ONE (02:30)
[2024-05-26] MEDS ORDERED: OXYCODONE/ACETAMINOPHEN 1 TAB HOME.PACK PO ONE (02:30)
[2024-05-26] MEDS ORDERED: ONDANSETRON 4 MG HOME.PACK SL ONE (02:45)
[2024-05-26 03:05] VITALS: BP 114/78
== END 2024-05-26 03:05 | disposition home or self-care (01) ==
LOC: ED 00:08
PROVIDERS: Family Medicine
DX: N13.2 Hydronephrosis with renal and ureteral calculous obstruction (principal); F17.200 Nicotine dependence, unspecified, uncomplicated; Z88.0 Allergy status to penicillin; Z88.5 Allergy status to narcotic agent; Z79.899 Other long term (current) drug therapy
CPT/HCPCS: 36415; 74176; 80053; 81001; 85025; 96374; 96375; 96376; 99284-25; A9270; J1171; J1885; J2405; J7030